=== PATIENT | female | born 1980 | race Caucasian/White ===

== ENCOUNTER 2020-12-11 10:37 | Emergency (ER) | payer SELFPAY ==
[~2020-12-11] VITALS: Ht 162.6 cm; Wt 52.2 kg
--- NOTE | 2020-12-11 10:58 | PHYS DOC ---
Past History Past Medical History: Anxiety Past Surgical History: Cholecystectomy, Other Additional Past Surgical Histo: D&CX2 Alcohol Use: Occasionally General Adult EDM: Chief Complaint: SKIN RASH/ABSCESS HPI: HPI: This is a pleasant 40-year-old female who presents emergency department today with an abscess in her left axilla. Started 3 to 4 days ago. She took some fish amoxicillin. It is unclear how much she took. Her symptoms have not been getting better. She denies any fevers or chills. She denies chest pain shortness of breath or any other complaints. Duration constant. Review of systems negative for chest pain shortness of breath vomiting fevers chills. All other review of systems negative. ED course: 40-year-old female presenting with left axillary abscess. Patient was anxious in the examination room. We set up for procedural sedation and get the patient Versed. During the procedure the patient had a mild dip in her oxygen levels which was improved after giving her oxygen passively through [id number] and performing a simple chin tilt technique. We then went to proceed with the procedure. The patient's anxiety levels were very high. Many times during the procedure she would ask me to perform the procedure and then start yelling "stop!". I would then stop and ask her if she wanted us to proceed. I explained the need for drainage for this abscess and the potential for disability chronic pain and/or suffering. She understands the risks and benefits of the procedure and then asked me to proceed again. After 3 or 4 times of this happening I explained to her that she may need more extensive sedation than we can provide in the emergency department. We will refer her to a general surgeon and give her oral antibiotics. She will need to be seen by another physician within the next 24 hours. We will have her sign out AMA as she did not receive the medical care that was recommended which was incision and drainage of the abscess. alternatives were offered. The patient then left AMA. Current Medications: Current Meds: Current Medications Medications (Trade) Dose Ordered Sig/Juana Start Time Stop Time Status Last Admin Dose Admin Acetaminophen/ Hydrocodone Bitart (Lortab 5/325) 2 tab 1X ONCE 12/11/20 11:00 12/11/20 11:01 Diphtheria/ Pertussis/Tetanus Vacc (ADACEL TDap SYRINGE) 0.5 ml ONCE ONCE 12/11/20 11:00 12/11/20 11:01 Lidocaine HCl 10 ml 1X ONCE 12/11/20 11:00 12/11/20 11:01 Midazolam HCl (Versed) 2.5 mg 1X ONCE 12/11/20 11:00 12/11/20 11:01 Allergies: Allergies: Allergies Coded Allergies Type Severity Reaction Last Updated Verified No Known Drug Allergies 12/11/20 No Physical Exam: PE: Constitutional: Well developed, well nourished, no acute distress, non-toxic appearance. [] HENT: Normocephalic, atraumatic, bilateral external ears normal, oropharynx moist, no oral exudates, nose normal. [] Eyes: PERRLA, EOMI, conjunctiva normal, no discharge. [] Neck: Normal range of motion, no tenderness, supple, no stridor. [] Cardiovascular:Heart rate regular rhythm, no murmur [] Lungs & Thorax: Bilateral breath sounds clear to auscultation [] Abdomen: Bowel sounds normal, soft, no tenderness, no masses, no pulsatile masses. [] Skin: Warm, dry, no erythema, no rash. [] Back: No tenderness, no CVA tenderness. [] Extremities: No tenderness, no cyanosis, no clubbing, ROM intact, no edema. [] Neurologic: Alert and oriented X 3, normal motor function, normal sensory function, no focal deficits noted. [] Psychologic: Affect normal, judgement normal, mood normal. [] Current Patient Data: Vital Signs: Vital Signs Date Time Temp Pulse Resp B/P (MAP) Pulse Ox O2 Delivery O2 Flow Rate FiO2 12/11/20 10:43 98.0 16 16 116/45 (68) 100 Room Air EKG: EKG: [] Radiology/Procedures: Radiology/Procedures: [] Heart Score: Risk Factors: Risk Factors: DM, Current or recent (<one month) smoker, HTN, HLP, family history of CAD, obesity. Risk Scores: Score 0 - 3: 2.5% MACE over next 6 weeks - Discharge Home Score 4 - 6: 20.3% MACE over next 6 weeks - Admit for Clinical Observation Score 7 - 10: 72.7% MACE over next 6 weeks - Early Invasive Strategies Course & Med Decision Making: Course & Med Decision Making Pertinent Labs and Imaging studies reviewed. (See chart for details) [] Paulino Disclaimer: Paulino Disclaimer: This electronic medical record was generated, in whole or in part, using a voice recognition dictation system. Departure Departure: Impression: Primary Impression: Abscess of left axilla Disposition: 07 AMA/ELOPED/LWBS Condition: GUARDED Referrals: PCP,NO (PCP) Patient Instructions: Abscess Additional Instructions: Call general surgery at the [facility] to make an appointment for incision and drainage today or tomorrow. If you are unable to get into their clinic, you may return to an emergency department for further treatment and care. You will need to see another physician to drain this within the next 24 hours. Do not go more than 24 hours without going to a hospital. [facility] [address] [place] [address] Scripts Clindamycin Hcl (CLINDAMYCIN HCL) 300 Mg Capsule 1 CAP PO TID for sssi, #30 CAP Prov: ANN SILVER MD 12/11/20 Procedural Sedation Proc Sed Indication: I and D Consent: written and verbal Physician Involvement: The attending physician was present and supervising this procedure. Pre-Sedation Documentation and Exam: Normal neurologic exam. Normal physical exam other than abscess in the left axillary region. Airway Assessment: normal airway. Mallampati 1 Prior History of Anesthesia Complications: none ASA Classification: 1 Sedation/ Anesthesia Plan: versed Medications Used: 2.5 mg IV versed Monitoring and Safety: The patient was placed on a personnel monitor and vital signs, pulse oximetry and level of consciousness were continuously evaluated throughout the procedure. The patient was closely monitored until recovery from the medications was complete and the patient had returned to baseline status. Respiratory therapy was on standby at all times during the procedure. (The following sections must be completed) Post-Sedation Vital Signs: see nursing notes Post-Sedation Exam: Normal neurologic exam. Physical exam: Constitutional no acute distress, resting comfortably in examination room HEENT. Head normocephalic and atraumatic, pupils equal round and reactive to light, extraocular movements intact, no scleral icterus or erythema, mucous membranes moist CV: Palpable pulse with a nl rate and regular rhythm. Respiratory: Not in any respiratory distress breathing comfortably Abdomen: Soft nontender without rebound tenderness or guarding. Negative Henniker's point. Negative Key sign. Nondistended. Skin: Normal color Psych: Makes eye contact, affect congruent with mood Neuro exam: Mental status: Awake oriented and alert x3 Cranial nerves: Extraocular movements intact, eyebrows romeo bilaterally, smile symmetric, uvula elevation nl, shoulder shrug intact bilaterally, tongue protrusion normal DTRs: 2+ Sensation: equal and normal in all extremities Strength: 5/5 in upper and lower extremities bilaterally Complications: less than 5-10 sec dip of O2 levels into the 80s. Vital Signs Vital Signs Date Time Temp Pulse Resp B/P (MAP) Pulse Ox O2 Delivery O2 Flow Rate FiO2 12/11/20 11:15 16 100 Room Air 12/11/20 10:43 98.0 16 116/45 (68) Incision and Drainage Indication: axillary abscess Procedure: The patient was positioned appropriately and the skin over the incision site was prepped with betadine. Local anesthesia was 2% lidocain without epi injected. Unfortunately, the procedure was terminated prior to incision due to the patient's anxiety levels and inability to allow us to perform the procedure. The patients tetanus status was updated in the ed. The patient did not tolerate the procedure Complications: 02 drop briefly, see sedation note. ANN SILVER MD Dec 11, 2020 10:58
[2020-12-11] MEDS ORDERED: HYDROcodone/APAP 5/325MG 1 TAB TABLET PO ONE (11:00)
[2020-12-11] MEDS ORDERED: DIPH,PERTUSS(ACELL),TET VAC/PF 0.5 ML SYRINGE. VAX IM ONE (11:00)
[2020-12-11] MEDS ORDERED: MIDAZOLAM HCL PF 5 MG/5 ML VIAL. IV ONE (11:00)
[2020-12-11] MEDS ORDERED: LIDOCAINE 2% 20 ML VIAL. IJ ONE (11:00)
[2020-12-11] MEDS ORDERED: CLIN300C9 PO (11:40)
[2020-12-11] MEDS ORDERED: PIP/TAZO PER PHARMACY MC PRN (12:00)
[2020-12-11] MEDS ORDERED: IV NORMAL SALINE 50ML 50 ML ONE (12:06)
[2020-12-11] MEDS ORDERED: PIPERACILLIN/TAZOBACTAM 3.375 GM VIAL IV ONE (12:06)
[2020-12-11] MEDS ORDERED: PIPERACILLIN/TAZOBACTAM 3.375 GM in IV NORMAL SALINE 50ML 50 ML IV ONE (12:15)
[2020-12-11 12:49] VITALS: BP 107/67
== END 2020-12-11 13:48 | disposition left against medical advice (07) ==
LOC: ER 10:37
DX: L02.412 Cutaneous abscess of left axilla (principal); F41.9 Anxiety disorder, unspecified
CPT/HCPCS: 90471; 90715; 96365; 99152; 99285; J2001; J2250; J2543